=== PATIENT | female | born 1990 | race Native Hawaiian/Other Pacific Islander ===

== ENCOUNTER 2020-12-09 09:18 | Outpatient (CLI) | payer OTHER | END 2020-12-09 19:36 | disposition home or self-care (01) | LOC: INF 09:18 | PROVIDERS: ATTEND Internal Medicine | DX: Z23 Encounter for immunization (principal) ==

== ENCOUNTER 2021-01-11 12:55 | Outpatient (CLI) | payer OTHER | END 2021-01-11 19:41 | disposition home or self-care (01) | LOC: INF 12:55 | PROVIDERS: ATTEND Internal Medicine Endocrinology, Diabetes & Metabolism | DX: Z23 Encounter for immunization (principal) | CPT/HCPCS: 96372 ==